=== PATIENT | male | born 1980 | race Two or more races ===

== ENCOUNTER 2024-03-03 23:18 | Emergency (ER) | payer OTHER, SELFPAY ==
[2024-03-03 23:26] VITALS: BP 122/81; PULSE 107; RESP 18; TEMP 36.8; O2SAT 97; BMI 21.1
[2024-03-03 23:52] VITALS: BP 123/84; PULSE 104; RESP 17; TEMP 36.6; O2SAT 99
[2024-03-04 00:01] LABS: Hematocrit 29.1 % (42.0-52.0); Hemoglobin 9.4 g/dl (14.0-18.0); Mean Corpuscular HGB Conc 32.3 g/dl (31.0-36.0); Mean Corpuscular Hemoglobin 31.2 pg (27.0-33.0); Mean Corpuscular Volume 96.7 fL (80.0-98.0); Mean Platelet Volume 9.1 fL (9.4-12.4); Red Blood Count 3.01 X10*6/uL (4.60-5.80); Red Cell Distribution Width 17.4 % (11.0-16.0); White Blood Count 5.6 X10*3/uL (4.8-10.8)
[2024-03-04 00:06] LABS: Platelet Count 88 X10*3/uL (160-400)
[2024-03-04 00:17] LABS: Alanine Aminotransferase 15 U/L (0-40); Albumin Level 4.2 g/dL (3.5-5.0); Alkaline Phosphatase 48 U/L (39-117); Anion Gap 12 (12-20); Aspartate Amino Transferase 31 U/L (5-37); Bilirubin Total 0.6 mg/dL (0.0-1.0); Blood Urea Nitrogen 18 mg/dL (9-16); Calcium 9.8 mg/dL (8.4-10.2); Carbon Dioxide 23 mmol/L (22-29); Chloride 108 mmol/L (96-108); Creatinine Clr Calc Pharmacy 49.3; Estimated Glomerular Filt Rate 34; Glucose Random 85 mg/dL (60-115); Lipase 17 U/L (8-78); Potassium 4.1 mmol/L (3.3-5.1); Sodium 139 mmol/L (135-145); Total Protein 8.3 g/dL (6.5-8.0)
--- NOTE | 2024-03-04 00:18 | ED.GENADULT ---
HPI - General Adult General Chief complaint: Abdominal Pain Stated complaint: not feeling good Time Seen by Provider: 03/04/24 00:18 History of Present Illness ED Provider: Matthew FIGUEREDO narrative: The patient is a 43-year-old male with a history of substance use disorder. He was hospitalized last month at [facility] in [place]. At that hospitalization he was found to have significant renal insufficiency. He had an E coli UTI/pyelonephritis. He was also found to have hepatitis-C, untreated. He also had lesions on his feet described as eschars and purpuric vesicles with concern for eczema gangrenosum. Substance use issues were also addressed and he was started on Suboxone. He was also found to have thrombocytopenia and anemia. At discharge he went to the [place] [facility] ([facility]). He to [facility] on January 26 than it was discharged on February 06. The patient says that about a week ago he left the [facility] with a plan to relocate to a facility in [place]. He has been at the [facility] for the past week. He says that he has been doing his best to care for the wounds on his feet. He has been showering several times a day. He says that he was asking the staff at the facility here in [place] to help him purchase additional supplies for management of the skin lesions he has on his ankles and feet. He says that he was not happy with how things were going at the new place he was staying and he left today and took a trip from [place] to [place] and then walked to the hospital here. He has no fever, sweats, chills. Related Data Allergies Allergy/AdvReac Type Severity Reaction Status Date / Time shellfish derived Allergy Anaphylaxis Verified 03/03/24 23:27 Review of Systems Review of Systems: Yes all other systems are reviewed and are negative [facility] Social History Social History Smoked in Last 30 Days: No Use of substances other than those prescribed or required for medical reasons: No Advance Directives: No Advance Directives Information Provided: Yes Physical Exam ED Vital Signs: Vital Signs - 24 hr 03/03/24 23:26 03/03/24 23:52 03/04/24 01:24 Temperature 98.3 F 97.9 F 98.2 F Pulse Rate 107 H 104 H 96 Respiratory Rate 18 17 18 Blood Pressure 122/81 123/84 130/82 Pulse Oximetry 97 99 100 Oxygen Delivery Method Room Air Room Air Room Air BMI result Body Mass Index 21.1 Const Other: The patient is a slim 43-year-old male who was awake and alert and does not appear obviously acutely ill although he looks somewhat chronically ill. HENMT Other: Face is symmetrical. Mucous membranes are moist. The posterior pharynx is unremarkable. Airway is clear. Eyes Other: Pupils are round equal, conjunctivae are clear, extraocular movements intact, no scleral icterus Neck Other: No JVD Resp Effort & Inspection: normal respiratory effort Auscultation: clear to auscultation bilaterally Cardio Rate: regular rate Rhythm: regular rhythm Heart sounds: S1 normal heart sound present and S2 normal heart sound present GI Other: The abdomen was flat and soft. No suspicion for ascites. He described generalized tenderness. No rebound or guarding. Skin Other: The patient has several lesions around the ankles in the feet on both lower extremities. Neuro Other: The patient is awake and alert. Mental status seems clear. There does not seem to be any confusion or sign of encephalopathy. Cranial nerves are intact. He moves his extremities normally and appropriately. He seems neurologically intact. Extrem Other: The patient has some very slight edema to the skin of the lower legs. He several lesions on the feet and the ankle areas. I do not feel there is any sign of cellulitis or other obvious sign of infection of these lesions however. Medical Decision Making Medical Decision Making [facility] Narrative: The patient is a chronically ill 43-year-old male. He has significant substance use disorder and has hepatitis C. he was hospitalized a [facility] and was found to have kidney injury and LFT abnormalities. He also had skin lesions. He was treated at [facility] for approximately 10 days and then discharged to a community stabilization center before moving to this area about a week ago. Far as I can tell he does not seem to be very happy with his experience at the [facility] where he has been staying and he seems to have left the facility without a plan to go back. I believe he came straight here. I do not appreciate any definite acute medical problem requiring hospitalization or significant further evaluation here in the emergency room. The most significant findings on his physical exam or some unusual lesions on his feet and ankles of uncertain diagnosis. He seems medical center. His labs seems stable. His renal function is not much worse than when he left [facility]. Overall I did not feel there was an indication for acute intervention. When I asked the patient if he plan to return to the place he adjust left he said no, he would rather be homeless. He says he has been homeless before. He admits to being depressed but denies suicidality. He has never been psychiatrically hospitalized. He was offered to speak with the care team but did not wish to speak with the care team. He was therefore discharged with the recommendations to try to follow up as instructed by the [facility] discharge plan. Lab Data 03/03/24 23:57 03/03/24 23:57 Labs: Lab Results 03/03/24 Range/Units 23:57 WBC 5.6 (4.8-10.8) X10*3/uL RBC 3.01 L (4.60-5.80) X10*6/uL Hgb 9.4 L (14.0-18.0) g/dl Hct 29.1 L (42.0-52.0) % MCV 96.7 (80.0-98.0) fL MCH 31.2 (27.0-33.0) pg MCHC 32.3 (31.0-36.0) g/dl RDW 17.4 H (11.0-16.0) % Plt Count 88 L (160-400) X10*3/uL MPV 9.1 L (9.4-12.4) fL Absolute Nucleated RBC 0.000 (0.0-0.012) X10*3/uL Nucleated RBC % (auto) 0.0 (0.0-0.2) /100WBC Sodium 139 (135-145) mmol/L Potassium 4.1 (3.3-5.1) mmol/L Chloride 108 (96-108) mmol/L Carbon Dioxide 23 (22-29) mmol/L Anion Gap 12 (12-20) BUN 18 H (9-16) mg/dL Creatinine 2.10 H (0.5-1.4) mg/dL Estim Creat Clear Calc 49.3 Estimated GFR 34 Random Glucose 85 (60-115) mg/dL Calcium 9.8 (8.4-10.2) mg/dL Total Bilirubin 0.6 (0.0-1.0) mg/dL AST 31 (5-37) U/L ALT 15 (0-40) U/L Alkaline Phosphatase 48 (39-117) U/L Total Protein 8.3 H (6.5-8.0) g/dL Albumin 4.2 (3.5-5.0) g/dL Lipase 17 (8-78) U/L Discharge Plan Discharge Clinical Impression: Chronic liver disease, Chronic kidney disease, Substance use disorder Patient Disposition: Home, Self-Care Additional Instructions: Your testing today in the emergency department seems reassuring. Your values are similar to the values of your blood tests when you left the hospital in [place] a month ago. Please continue all of your current medications including Suboxone. Please try to follow up with the clinics in [place] mentioned on your discharge instructions from [facility]. Return to the emergency room if significantly worse. Interventions: ED Discharge Assessment Last Done: 03/04/24 01:24 Discharge Date/Time: 03/04/24 01:15 Print Language: Ghanaian
[2024-03-04 01:24] VITALS: BP 130/82; PULSE 96; RESP 18; TEMP 36.8; O2SAT 100
== END 2024-03-04 01:15 | disposition home or self-care (01) ==
PROVIDERS: Emergency Provider Emergency Medicine
DX: N18.9 Chronic kidney disease, unspecified (principal); K76.9 Liver disease, unspecified; F19.90 Other psychoactive substance use, unspecified, uncomplicated; L98.9 Disorder of the skin and subcutaneous tissue, unspecified; B19.20 Unspecified viral hepatitis C without hepatic coma
CPT/HCPCS: 36415; 80053; 83690; 85027; 99283; 99284